=== PATIENT | male | born 1950 | race Caucasian/White ===

== ENCOUNTER → 2019-06-15 | Outpatient (CLI) | payer MEDICARE | END | disposition home or self-care (01) | LOC: CVU 08:42 | PROVIDERS: ATTEND Internal Medicine Cardiovascular Disease | DX: I51.7 Cardiomegaly (principal); I49.1 Atrial premature depolarization; I48.91 Unspecified atrial fibrillation; E78.5 Hyperlipidemia, unspecified | CPT/HCPCS: 93306 ==

== ENCOUNTER → 2019-08-06 | Outpatient (CLI) | payer MEDICARE ==
[~2019-08-06] MED LIST: REGADENOSON 0.4 MG/5 ML SYRINGE ONE
== END | disposition home or self-care (01) ==
LOC: CFH 12:30
PROVIDERS: ATTEND Internal Medicine Cardiovascular Disease
DX: I25.9 Chronic ischemic heart disease, unspecified (principal); I21.19 ST elevation (STEMI) myocardial infarction involving other coronary artery of inferior wall; I49.3 Ventricular premature depolarization; R94.31 Abnormal electrocardiogram [ECG] [EKG]
CPT/HCPCS: 78452; 93017; A9502; J2785

== ENCOUNTER 2019-09-10 09:51 | Observation (INO) | payer MEDICARE ==
[~2019-09-10] VITALS: Ht 190.5 cm; Wt 102.0 kg
[2019-09-10] MEDS ORDERED: SODIUM CHLORIDE 0.9% 1,000 ML IV SCH (10:01)
[2019-09-10 10:11] VITALS: BP 157/87
[2019-09-10] MEDS ORDERED: METO50TA82 PO (10:16)
[2019-09-10] MEDS ORDERED: DICL75TA3 PO (10:16)
[2019-09-10] MEDS ORDERED: GABA-827 PO (10:16)
[2019-09-10] MEDS ORDERED: ESOM20CA57 PO (10:16)
[2019-09-10] MEDS ORDERED: HYDR-3237 PO (10:16)
[2019-09-10] MEDS ORDERED: ROSU5TAB PO (10:16)
[2019-09-10] MEDS ORDERED: CARI350T PO (10:16)
[2019-09-10] MEDS ORDERED: LISI-167 PO (10:16)
[2019-09-10] MEDS ORDERED: PLEASE ENTER HEIGHT AND WEIGHT MC SCH (10:30)
[2019-09-10] MEDS ORDERED: PLEASE ENTER ALLERGIES MC SCH (10:30)
[2019-09-10 10:44] LABS: BASOPHILS # (AUTO) 0.02 x10^3/uL (0-0.1); BASOPHILS % (AUTO) 0 % (0-1); EOSINOPHILS # (AUTO) 0.07 x10^3/uL (0-0.4); EOSINOPHILS % (AUTO) 1 % (1-7); LYMPHOCYTES # (AUTO) 1.66 x10^3/uL (1-3.4); LYMPHOCYTES % (AUTO) 32 % (22-44); MD NO; MEAN CORPUSCULAR HEMOGLOBIN 31.2 pg (27.5-34.5); MEAN CORPUSCULAR HGB CONC 33.7 g/dL (33.2-36.2); MEAN CORPUSCULAR VOLUME 92.6 fL (81-97); MEAN PLATELET VOLUME 8.1 fL (7.4-10.4); MONOCYTES # (AUTO) 0.55 x10^3/uL (0.2-0.8); MONOCYTES % (AUTO) 11 % (2-9); NEUTROPHILS # (AUTO) 2.97 x10^3/uL (1.8-6.8); NEUTROPHILS % (AUTO) 56 % (42-75); PLATELET COUNT 176 x10^3/uL (130-400); RED BLOOD COUNT 4.65 x10^6/uL (4.38-5.82); RED CELL DISTRIBUTION WIDTH 13.4 % (9.4-14.8)
[2019-09-10 10:49] LABS: ANION GAP 9 mmol/L (5-15); CALCIUM 9.1 mg/dL (8.5-10.1); CHLORIDE 110 mmol/L (98-107)
[2019-09-10 10:50] LABS: CREATININE 0.85 mg/dL (0.7-1.3)
[2019-09-10] MEDS ORDERED: FENTANYL PF 100 MCG/2ML ONE (14:10)
[2019-09-10] MEDS ORDERED: MIDAZOLAM 1 MG/ML, 5ML ONE (14:10)
[2019-09-10] MEDS ORDERED: HEPARIN 1,000 UNITS/ML, 10ML ONE (14:11)
[2019-09-10] MEDS ORDERED: LIDOCAINE-MPF 1%, 5ML ONE (14:11)
[2019-09-10] MEDS ORDERED: VERAPAMIL 2.5 MG/ML, 2ML ONE (14:11)
[2019-09-10] MEDS ORDERED: BIVALIRUDIN 250 MG ONE ×2 (14:11→14:50)
[2019-09-10] MEDS ORDERED: BIVALIRUDIN 250 MG in SODIUM CHLORIDE 0.9% 50 ML IV SCH (15:03)
[2019-09-10] MEDS ORDERED: PRASUGREL 10 MG TABLET ONE (15:09)
[2019-09-10] MEDS ORDERED: ZOLPIDEM 5MG TABLET PO PRN (15:30)
[2019-09-10] MEDS ORDERED: CARISOPRODOL 350 MG TABLET PO PRN (15:30)
[2019-09-10] MEDS ORDERED: ACETAMINOPHEN 325 MG TABLET PO PRN (15:30)
[2019-09-10] MEDS ORDERED: DICLOFENAC SODIUM 75 MG TABLET.DR PO PRN (15:30)
[2019-09-10] MEDS ORDERED: HYDROcodone/APAP 5/325 TABLET PO PRN (15:30)
[2019-09-10] MEDS: SODIUM CHLORIDE 0.9% 1,000 ML IV SCH ×2 (15:49→23:03)
[2019-09-10 20:10] VITALS: BP 112/62
[2019-09-10] MEDS: GABAPENTIN 400 MG CAPSULE PO SCH (20:19)
[2019-09-10] MEDS: METOPROLOL TARTRATE 50 MG TAB PO SCH (20:26)
[2019-09-10] MEDS ORDERED: ATORVASTATIN 20 MG TABLET PO SCH (21:00)
[2019-09-10 21:17] LABS: TROPONIN I 0.064 ng/mL (0.000-0.045)
[2019-09-11 02:27] VITALS: BP 109/59
[2019-09-11 05:54] LABS: CHLORIDE 111 mmol/L (98-107)
[2019-09-11 06:01] LABS: ANION GAP 8 mmol/L (5-15); CALCIUM 8.9 mg/dL (8.5-10.1); CREATININE 0.88 mg/dL (0.7-1.3)
[2019-09-11] MEDS: SODIUM CHLORIDE 0.9% 1,000 ML IV SCH (06:34)
[2019-09-11 07:33] VITALS: BP 114/71
[2019-09-11] MEDS ORDERED: ASPI81TA45 PO (08:23)
[2019-09-11] MEDS ORDERED: PRAS10TA4 PO (08:23)
[2019-09-11] MEDS ORDERED: ASPIRIN 81 MG TABLET EC PO SCH (08:30)
[2019-09-11] MEDS: GABAPENTIN 400 MG CAPSULE PO SCH (08:37)
[2019-09-11] MEDS: METOPROLOL TARTRATE 50 MG TAB PO SCH (08:37)
[2019-09-11] MEDS ORDERED: PRASUGREL 10 MG TABLET PO SCH (09:00)
[2019-09-11] MEDS ORDERED: LISINOPRIL 10 MG TABLET PO SCH (09:00)
[2019-09-11] MEDS ORDERED: PANTOPRAZOLE 40MG TABLET PO SCH (09:00)
== END 2019-09-11 10:22 | disposition home or self-care (01) ==
LOC: CACL 09:51 → 5SO 15:03 → DCLOUNGE 09-11 10:10
PROVIDERS: ADMIT Internal Medicine Cardiovascular Disease; ATTEND Internal Medicine Cardiovascular Disease
DX: I71.9 Aortic aneurysm of unspecified site, without rupture (principal); I49.3 Ventricular premature depolarization; R07.89 Other chest pain; R03.0 Elevated blood-pressure reading, without diagnosis of hypertension; R94.31 Abnormal electrocardiogram [ECG] [EKG]; E78.5 Hyperlipidemia, unspecified; Z79.899 Other long term (current) drug therapy; Z79.82 Long term (current) use of aspirin
CPT/HCPCS: 36415; 80048; 84484; 85025; 93005; 93458; 99156; C1769; C1874; C1887; C1894; C9600; G0378; J0583; J1644; J2250; J3010; Q9967